=== PATIENT | male | born 1945 | race Caucasian/White ===

== ENCOUNTER → 2016-08-27 | Outpatient (CLI) | payer MEDICARE, OTHER ==
--- NOTE | 2016-08-27 14:59 | CR ---
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 Otherwise the residual osseous structures appear i ntact. No joint effusion.
== END | disposition home or self-care (01) ==
LOC: MW.CHORTHO 10:03
PROVIDERS: ATTEND Orthopaedic Surgery
DX: M25.562 Pain in left knee (principal); Z96.652 Presence of left artificial knee joint
CPT/HCPCS: 73562; G0463

== ENCOUNTER 2017-01-04 00:44 | Emergency (ER) | payer MEDICARE, OTHER ==
--- NOTE | 2017-01-04 00:48 | EDM.PDOC ---
ED HPI GENERAL MEDICAL PROBLEM - General Stated Complaint: ALERGIC REACTION Time Seen by Provider: 01/04/17 00:47 Source of Information: Reports: Patient History Limitations: Reports: No Limitations - History of Present Illness INITIAL COMMENTS - FREE TEXT/NARRATIVE: HISTORY AND PHYSICAL: History of present illness: [71-year-old male complains of lip and tongue swelling/possible allergic reaction. 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 He states that 10 years ago he had many episodes identical to his symptoms today. By his description for about 2 years every 2 weeks he would have an episode with tongue and lip swelling and itching. 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 Patient denies that anyone mention allergic or hereditary angioedema. He has no voice changes tonight and is not short of breath, no chest Review of systems: As per history of present illness and below otherwise all systems reviewed and negative. Past medical history: As per history of present illness and as reviewed below otherwise noncontributory. Surgical history: As per history of present illness and as reviewed below otherwise noncontributory. Social history: No reported history of drug or alcohol abuse. Family history: As per history of present illness and as reviewed below otherwise noncontributory. Physical exam: Normal appearing lips tongue and oropharynx. No stridor. Clear lungs. Rhythm no bronchospasm or wheezing HEENT: Atraumatic, normocephalic, pupils reactive, negative for conjunctival pallor or scleral icterus, mucous membranes moist, throat clear, neck supple, nontender, trachea midline. Lungs: Clear to auscultation, breath sounds equal bilaterally, chest nontender. Heart: S1S2, regular, negative for clicks, rubs, or JVD. Abdomen: Soft, nondistended, nontender. Negative for masses or hepatosplenomegaly. Negative for costovertebral tenderness. Pelvis: Stable nontender. Genitourinary: Deferred. Rectal: Deferred. Extremities: Atraumatic, negative for cords or calf pain. Neurovascular unremarkable. Neuro: Awake, alert, oriented. Cranial nerves II through XII unremarkable. Cerebellum unremarkable. Motor and sensory unremarkable throughout. Exam nonfocal. Diagnostics: [] Therapeutics: [Benadryl 50 mg taken at home, Solu-Medrol given in ED as well as Pepcid] Impression: [Angioedema] Plan: [Patient with mild angioedema improving after Benadryl at home. Allergic versus hereditary. Solu-Medrol and Pepcid given. Patient will be observed in ED for stability in anticipation of outpatient follow-up with steroid and Pepcid prescriptions. Vital signs stable on M.D. exam. The patient continues to clinically improve he agrees with outpatient follow-up and strict return precautions will be given Definitive disposition and diagnosis as appropriate pending reevaluation and review of above. - Related Data Allergies Allergy/AdvReac Type Severity Reaction Status Date / Time No Known Allergies Allergy Verified 01/04/17 00:48 Social & Family History - Tobacco Use Smoking Status *Q: Former Smoker Years of Tobacco use: 15 Used Tobacco, but Quit: Yes Month Tobacco Last Used: 02/1980 Second Hand Smoke Exposure: No - Alcohol Use Days Per Week of Alcohol Use: 2 Number of Drinks Per Day: 2 Total Drinks Per Week: 4 - Recreational Drug Use Recreational Drug Use: No Drug Use in Last 12 Months: No ED ROS GENERAL - Review of Systems Review Of Systems: See Below (History of present illness) ED EXAM, GENERAL - Physical Exam Exam: See Below (History of present illness) Course - Vital Signs Last Recorded V/S: Last Vital Signs Temp 36.4 C 01/04/17 02:55 Pulse 67 01/04/17 02:55 Resp 16 01/04/17 02:55 BP 122/75 01/04/17 02:55 Pulse Ox 98 01/04/17 02:55 - Orders/Labs/Meds Meds: Medications Discontinued Medications Generic Name Dose Route Start Last Admin Trade Name Freq PRN Reason Stop Dose Admin Famotidine 20 mg 01/04/17 01:06 01/04/17 01:14 Pepcid IVPUSH 01/04/17 01:07 20 mg ONETIME ONE Administration Methylprednisolone Sodium Succinate 125 gm 01/04/17 01:02 Solu-Medrol IV 01/04/17 01:03 STAT STA Methylprednisolone Sodium Succinate 125 mg 01/04/17 01:07 01/04/17 01:12 Solu-Medrol IVPUSH 01/04/17 01:08 125 mg ONETIME ONE Administration Departure - Departure Time of Disposition: 00:48 Disposition: Home, Self-Care 01 Condition: Good Clinical Impression: Angioedema of lips - Discharge Information Referrals: PCP,None [Primary Care Provider] - Additional Instructions: Today you have suffered from angioedema. This means fluid in the soft tissues of some part of your body in this case your lips and tongue. Sometimes this is a result of an allergic reaction known is allergic angioedema. Sometimes this is hereditary and there is no explanation for it. 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 Your symptoms have improved with antihistamines Benadryl and Pepcid as well as steroid treatment. It's appropriate to have you follow-up with your doctor as an outpatient but it is possible that your symptoms could get worse again. If you have tongue swelling voice changes or difficulty breathing return immediately to the emergency department. Otherwise follow-up with your doctor. Take ventral [id number] 50 mg every 4-6 hours as needed for itching or swelling and take Pepcid 20 mg twice a day as prescribed. Finish prednisone as prescribed and follow-up with your tomorrow.
[2017-01-04] MEDS ORDERED: methylPREDNISolone Sodium Succinate 2 GM Vial IV STA (01:02)
[2017-01-04] MEDS ORDERED: Famotidine 20 MG/2 ML SDV IVPUSH ONE (01:06)
[2017-01-04] MEDS ORDERED: methylPREDNISolone Sodium Succinate 125 MG/2 ML SDV IVPUSH ONE (01:07)
[2017-01-04 03:39] VITALS: BP 121/75
== END 2017-01-04 03:38 | disposition home or self-care (01) ==
LOC: MW.ED 00:44
DX: T78.3XXA Angioneurotic edema, initial encounter (principal); Z87.891 Personal history of nicotine dependence
CPT/HCPCS: 96374; 96375; 99283; J2930

== ENCOUNTER 2017-02-21 06:29 | Emergency (ER) | payer MEDICARE, OTHER ==
[2017-02-21] MEDS ORDERED: predniSONE 20 MG Tab PO ONE (07:07)
--- NOTE | 2017-02-21 07:13 | EDM.PDOC ---
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 At that time he had itchiness scratchy throat and was treated here. The patient has since followed up with his family doctor and etiology of this is still unknown. He is currently on antihistamines regularly and has an EpiPen to use as needed at home. The patient says that 20 years ago he had a full workup in no acute figure out the cause then either. He said that this morning he woke up and took glucosamine and Prilosec which she has taken before and started feeling itchy having a scratchy throat but he had no shortness of breath. He did not take any Benadryl but he did use his EpiPen. Currently in the ED he feels significantly improved. He has no shortness of breath chest pain or other systemic complaints and still feels slightly itchy but it is significantly improved. He never noticed a rash to some redness this morning. Review of systems: As per history of present illness and below otherwise all systems reviewed and negative. Past medical history: As per history of present illness and as reviewed below otherwise noncontributory. Surgical history: As per history of present illness and as reviewed below otherwise noncontributory. Social history: No reported history of drug or alcohol abuse. Family history: As per history of present illness and as reviewed below otherwise noncontributory. Physical exam: Gen.: Well-developed well-nourished male who is nontoxic and speaking clearly and easily in the ED. Vital signs of been reviewed by me HEENT: Atraumatic, normocephalic, pupils reactive, negative for conjunctival pallor or scleral icterus, mucous membranes moist, throat clear, neck supple, nontender, trachea midline. There is no facial lip oropharyngeal swelling noted Lungs: Clear to auscultation, breath sounds equal bilaterally, chest nontender. No wheezing stridor or work of breathing Heart: S1S2, regular rate and rhythm no overt murmurs Abdomen: Soft, nondistended, nontender. NABS. Pelvis: Deferred. Genitourinary: Deferred. Rectal: Deferred. Extremities: Atraumatic, negative for cords or calf pain. Neurovascular unremarkable. Neuro: Awake, alert, oriented. Cranial nerves II through XII unremarkable. Cerebellum unremarkable. Motor and sensory unremarkable throughout. Exam nonfocal. Skin: Normal turgor no overt rashes or lesions and only a slight reddish tinge to his dorsal hands and anterior nape of neck. Diagnostics: [] Therapeutics: Prednisone Impression: Idiopathic allergic reaction Definitive disposition and diagnosis as appropriate pending reevaluation and review of above. no pain Pain Score (Numeric/FACES): 0 - Related Data Allergies Allergy/AdvReac Type Severity Reaction Status Date / Time No Known Allergies Allergy Verified 02/21/17 06:34 Home Meds: Home Meds EPINEPHrine [Epipen] 1 injection IM ASDIRECTED 02/21/17 [History] Glucosamine [Glucosamine Sulfate] 15 mg PO BID 02/21/17 [History] Omeprazole Magnesium [Prilosec Otc] 20 mg PO DAILY 02/21/17 [History] Past Medical History HEENT History: Reports: None Cardiovascular History: Reports: None Respiratory History: Reports: None Gastrointestinal History: Reports: Other (See Below) Other Gastrointestinal History: Acid Reflux Genitourinary History: Reports: None Musculoskeletal History: Reports: None Neurological History: Reports: None Psychiatric History: Reports: None Endocrine/Metabolic History: Reports: None Hematologic History: Reports: None Immunologic History: Reports: None Oncologic (Cancer) History: Reports: None Dermatologic History: Reports: Other (See Below) Other Dermatologic History: h/o of allergy a month ago - Infectious Disease History Infectious Disease History: Reports: None - Past Surgical History HEENT Surgical History: Reports: Tonsillectomy Other Musculoskeletal Surgeries/Procedures:: left knee surgery Social & Family History - Family History Family Medical History: Noncontributory - Tobacco Use Smoking Status *Q: Never Smoker Years of Tobacco use: 15 Used Tobacco, but Quit: Yes Month Tobacco Last Used: 02/1980 Second Hand Smoke Exposure: No - Caffeine Use Caffeine Use: Reports: Coffee - Alcohol Use Days Per Week of Alcohol Use: 2 Number of Drinks Per Day: 2 Total Drinks Per Week: 4 - Recreational Drug Use Recreational Drug Use: No Drug Use in Last 12 Months: No ED ROS ALLERGIC REACTION - Review of Systems Review Of Systems: ROS reveals no pertinent complaints other than HPI. ED EXAM GENERAL NO PERIP PULSE - Physical Exam Exam: See Below (See dictation) Course - Vital Signs Last Recorded V/S: Last Vital Signs Temp 36.1 C 02/21/17 06:38 Pulse 80 02/21/17 06:38 Resp 18 02/21/17 06:38 BP 139/66 02/21/17 06:38 Pulse Ox 97 02/21/17 06:38 - Orders/Labs/Meds Orders: Active Orders 24 hr Category Date Time Status predniSONE Med 02/21/17 07:07 Once 40 mg PO ONETIME ONE Departure - Departure Time of Disposition: 07:10 Disposition: Home, Self-Care 01 Condition: Good Clinical Impression: Pruritus - Discharge Information Additional Instructions: The following information is given to patients seen in the emergency department who are being discharged to home. This information is to outline your options for follow-up care. We provide all patients seen in our emergency department with a follow-up referral. The need for follow-up, as well as the timing and circumstances, are variable depending upon the specifics of your emergency department visit. If you don't have a primary care physician on staff, we will provide you with a referral. We always advise you to contact your personal physician following an emergency department visit to inform them of the circumstance of the visit and for follow-up with them and/or the need for any referrals to a consulting specialist. The emergency department will also refer you to a specialist when appropriate. This referral assures that you have the opportunity for followup care with a specialist. All of these measure are taken in an effort to provide you with optimal care, which includes your followup. Under all circumstances we always encourage you to contact your private physician who remains a resource for coordinating your care. When calling for followup care, please make the office aware that this follow-up is from your recent emergency room visit. If for any reason you are refused follow-up, please contact the [facility] emergency department at and ask to speak to the emergency department charge nurse. [address] [place] [address] Please continue your home medications and home antihistamines and add Benadryl 50 mg if you feel that the itchiness is returning. Take prednisone as directed. Please call and follow-up with Dr. Hay in the clinic for further care and evaluation return here as needed and as discussed - My Orders Last 24 Hours: My Active Orders 02/21/17 07:07 predniSONE 40 mg PO ONETIME ONE - Assessment/Plan Last 24 Hours: My Active Orders 02/21/17 07:07 predniSONE 40 mg PO ONETIME ONE
[2017-02-21 07:30] VITALS: BP 136/63
== END 2017-02-21 07:23 | disposition home or self-care (01) ==
LOC: MW.ED 06:29
DX: T78.40XA Allergy, unspecified, initial encounter (principal); L29.9 Pruritus, unspecified; K21.9 Gastro-esophageal reflux disease without esophagitis; Z98.890 Other specified postprocedural states; Z88.8 Allergy status to other drugs, medicaments and biological substances
CPT/HCPCS: 99283; A9270

== ENCOUNTER 2025-01-29 20:54 | Emergency (ER) | payer MEDICARE ==
[2025-01-29 23:25] LABS: BASOPHILS ABSOLUTE AUTO 0.04 K/uL (0.00-0.20); BASOPHILS PERCENT AUTO 0.5 % (0.0-1.0); EOSINOPHILS ABSOLUTE AUTO 0.23 K/uL (0.00-0.45); EOSINOPHILS PERCENT AUTO 3.0 % (0.0-6.0); IMMATURE GRAN ABSOLUTE AUTO 0.03 K/uL (0.00-0.05); IMMATURE GRAN PERCENT AUTO 0.4 % (0.0-0.4); LYMPHOCYTES ABSOLUTE AUTO 1.09 K/uL (1.00-4.80); LYMPHOCYTES PERCENT AUTO 14.2 % (24.0-44.0); MEAN PLATELET VOLUME 9.2 fL (9.4-12.4); MONOCYTES ABSOLUTE AUTO 0.64 K/uL (0.00-0.80); MONOCYTES PERCENT AUTO 8.3 % (0.0-8.0); NEUTROPHILS ABSOLUTE AUTO 5.67 K/uL (1.80-7.70); NEUTROPHILS PERCENT AUTO 73.6 % (41.0-71.0); NRBC ABSOLUTE 0.00 K/uL (0.00-0.02); NRBC PERCENT 0.0 /100WBC (0.0-0.2); PLATELET COUNT,PLT 257 K/uL (150-400); RED BLOOD CELL COUNT 4.49 M/uL (4.52-5.90); WHITE BLOOD CELL COUNT,WBC 7.70 K/uL (3.9-11.3)
[2025-01-29 23:46] LABS: A/G RATIO 1.2 (0.9-1.6); ALANINE AMINOTRANSFERASE,ALT 33 IU/L (14-63); ASPARTATE AMNIOTRANSFERASE,AST 23 IU/L (15-37); BILIRUBIN TOTAL 0.3 mg/dL (0.2-1.0); BLOOD UREA NITROGEN,BUN 17 mg/dL (7.0-18.0); CARBON DIOXIDE,CO2 27.2 mmol/L (21.0-32.0); CHLORIDE,CL 107 mmol/L (98-107); CREATININE 1.4 mg/dL (0.8-1.3); GLUCOSE RANDOM 118 mg/dL (74-106); POTASSIUM,K 4.0 mmol/L (3.5-5.1); PROTEIN TOTAL,TP 7.0 g/dL (6.4-8.2); SODIUM,NA 143 mmol/L (136-148)
[2025-01-29 23:47] LABS: ESTIMATED GFR 51 mL/min (>60)
[2025-01-30 02:35] VITALS: BP 160/78; PULSE 62
== END 2025-01-30 00:32 | disposition home or self-care (01) ==
LOC: MW.ED 20:54
DX: R21 Rash and other nonspecific skin eruption (principal); R03.0 Elevated blood-pressure reading, without diagnosis of hypertension; E78.00 Pure hypercholesterolemia, unspecified; K21.9 Gastro-esophageal reflux disease without esophagitis; Z88.1 Allergy status to other antibiotic agents; Z91.048 Other nonmedicinal substance allergy status; Z91.018 Allergy to other foods; Z79.899 Other long term (current) drug therapy
CPT/HCPCS: 36415; 80053; 85025; 85652; 86140; 99283; A9270; J8540